=== PATIENT | female | born 1980 | race Caucasian/White ===

== ENCOUNTER → 2018-05-03 | Outpatient (CLI) | payer MEDICAID | LOC: FIMAGING 09:27 | PROVIDERS: ATTEND Advanced Practice Midwife | DX: O09.522 Supervision of elderly multigravida, second trimester (principal); O99.282 Endocrine, nutritional and metabolic diseases complicating pregnancy, second trimester; Z3A.21 21 weeks gestation of pregnancy ==

== ENCOUNTER 2018-09-09 02:45 | Inpatient (IN) | payer OTHER ==
--- NOTE | 2018-09-09 03:30 | PDGENHP ---
History and Physical History and Physical: Care: [facility] HPI: Mary Kate Newman is a with IUP@ 40-2 weeks that presents to L&D with complaints of SROM 09/08/18 @ 1800 EDC: 09/07/18 which is based on Ultrasound at 9 weeks. Her is complicated by: AMA, (38yo), h/o trisomy 21 with G1 (EAB @ 15wks), waldo's Review of Systems: Constitutional: Denies any fever, chills, or fatigue HEENT: denies any visual changes, difficulty swallowing, hearing loss Cardiovascular: Denies any chest pain, palpitations, leg swelling Respiratory: denies any cough, wheezing, or shortness of breathe GI: Denies any nausea, vomiting, diarrhea, constipation : denies any dysuria, urgency, frequency, vaginal bleeding Musculoskeletal: denies any muscle or bone pain Skin: denies any rashes Neuro: denies any headache, seizures, lightheadedness, dizziness, or loss of consciousness Psychiatric: denies any depression, anxiety, or SI/HI thoughts HISTORY: Previous OB history: 7#4, EAB @ 15wks 09/10 Tri21 Past medical history: waldo's Past surgical history: none Social: Denies any alcohol, tobacco, or drug use. Marty, works as RN @ [employer] Family history: Not relevant Medications: PNV, levothyroxine Allergies (list reaction): NKDA LABS: Rh: A+ ABS: Neg Rubella: Immune HbsAg: NR HIV: NR VDRL: NR 1hr: 90 GC: Neg Chlamydia: Neg Pap: Normal (2016) GBS: negative BMI: (prepreg) 25 PHYSICAL EXAM: Constitutional: WN, A&Ox3 HEENT: normocephalic atraumatic, supple Skin: Warm, dry, intact Heart: RRR, no murmur Chest: CTA-B Abdomen: Soft, nontender, gravid SVE: /-2 Extremities: no edema, negative homans sign Neuro: grossly normal Psych: normal affect assessment: FHT baseline 135 +accels, no decels, moderate variability Contractions: toco q 2-4 Assessment: * [id number] with IUP@ 40-2 * SROM 09/08/18 @ 1800 * GBS negative * early labor * cat 1 FHR Plan: * Admit to L&D * pain management PRN * expectant management * IA per protocol Today's visit was approximately 30 min, of which >50% of visit 20 min, was spent face to face with pt on direct counseling/coordination of care.
[2018-09-09] MEDS ORDERED: LIDOCAINE 1% 300 MG/30 ML SDV SC PRN (03:46)
[2018-09-09] MEDS ORDERED: OXYTOCIN/RINGERS LACTATE 1,000 ML IV PRN (03:46)
[2018-09-09] MEDS ORDERED: EPSOM SALT 454 GM TP PRN (03:46)
[2018-09-09] MEDS ORDERED: MISOPROSTOL 200 MCG TAB PR PRN (03:46)
[2018-09-09] MEDS ORDERED: OLIVE OIL 118 ML BTL MISC PRN (03:46)
[2018-09-09] MEDS ORDERED: IBUPROFEN 600 MG TAB PO PRN (03:46)
[2018-09-09] MEDS ORDERED: LR 1,000 ML IV PRN (03:46)
[2018-09-09] MEDS ORDERED: AMMONIA AROMATIC 1 EACH AMP IH ONE (03:54)
[2018-09-09] MEDS ORDERED: TERBUTALINE SULFATE 1 MG/ML VIAL ONE (03:54)
[2018-09-09] MEDS ORDERED: LIDOCAINE 1% 300 MG/30 ML SDV ONE (03:54)
[2018-09-09] MEDS ORDERED: OXYTOCIN 10 UNIT/ML VIAL ONE (03:54)
[2018-09-09] MEDS ORDERED: OLIVE OIL 118 ML BTL ONE (03:54)
[2018-09-09] MEDS ORDERED: MISOPROSTOL 200 MCG TAB ONE (03:54)
[2018-09-09 04:00] LABS: PLATELET COUNT 187 10^3/uL (150-400)
[2018-09-09] MEDS ORDERED: fentaNYL 100 MCG/2 ML INJ IV ONE (05:00)
--- NOTE | 2018-09-09 05:19 | OBPROG ---
Labor Progress Note Assessment/Plan: Assessment: [id number] with IUP@ 40-2 early labor PROM- 09/08/18 @ 1800 GBS Negative cat 1 FHR Plan: encouraged rest pain management PRN reassess 2-4hr/PRN offered augmentation- pt declines 09/09/18 05:16 Subjective/Intrapartum Course: 09/09/18 05:19 pt doing well, she is breathing through contractions. She is able to close eyes between. Jimmy @ BS, supportive. Objective: 09/09/18 03:50 Patient ABO/Rh A POSITIVE 09/09/18 03:50 - Contraction Pattern Assessment Current Contraction Pattern: Regular - FHR Assessment Montemayor FHR (bpm): 135 FHR Pattern Variability: Moderate FHR Category: 1 Oxytocin Orders Assessment - Pre-Induction/Augmentation Assessment Gestational Age: 40 week(s) and 2 day(s) ICD10 Worksheet Patient Problems: Problems Problem Status Onset Labor and delivery, indication for care Acute - ICD10 Problem Qualifiers (1) Labor and delivery, indication for care
[2018-09-09] MEDS ORDERED: ONDANSETRON 4 MG/2 ML VIAL IVP PRN (06:19)
[2018-09-09] MEDS ORDERED: PHENYLEPHRINE HCL 100 MCG/ML SYR IVP PRN (06:19)
[2018-09-09] MEDS ORDERED: NALOXONE HCL 0.4 MG/ML INJ IVP PRN (06:19)
--- NOTE | 2018-09-09 06:19 | PREANESOB ---
Obstetric Pre-Anesthesia Info - General Info Proposed Procedure: epidural : 3 Para: 1 JOHN: 09/07/18 Gestational Age: 40 week(s) and 2 day(s) - Info Status: Full Term FHR Pattern: Reassuring - Labor Status Pitocin: Planned Magnesium Sulfate in Use: No Indications for Labor Analgesia: Pain Control Labor Epidural: Proposed Anesthesia Allergies/Adverse Reactions: Allergy/AdvReac Type Severity Reaction Status Date / Time No Known Allergies Allergy Unverified 09/09/18 03:45 Visit Medications: Generic Name Dose Route Start Last Admin Trade Name Freq PRN Reason Stop Dose Admin Lactated Ringer's 1,000 mls @ 0 mls/hr 09/09/18 03:46 Lr IV 09/10/18 03:45 PRN PRN SEE PROTOCOL CONDITIONS Protocol Per Protocol Oxytocin/Lactated Ringer's 1,000 mls @ 125 mls/hr 09/09/18 03:46 Pitocin 20 Units/Lr (Premix) IV PRN PRN Post bleeding Ibuprofen 600 mg 09/09/18 03:46 Motrin PO ONCE PRN post , pain Lidocaine HCl 300 mg 09/09/18 03:46 Lidocaine Hcl 1% SC 03/08/19 03:45 ONCE PRN episiotomy Magnesium Sulfate 454 gm 09/09/18 03:46 Epsom Salt TP 03/08/19 03:45 Q1H PRN perineal discomfort Misoprostol 800 - 1,000 mcg 09/09/18 03:46 Cytotec KS ONCE PRN Vaginal Atony/Bleeding West Oil 118 ml 09/09/18 03:46 Sweet Oil MISC 03/08/19 03:45 ONCE PRN perineal massage Discontinued Medications Generic Name Dose Route Start Last Admin Trade Name Freq PRN Reason Stop Dose Admin Ammonia (Aromatic Spirit) Confirm 09/09/18 03:54 Ammonia Aromatic Administered 09/09/18 03:55 Dose 1 each IH .STK-MED ONE Fentanyl 50 mcg 09/09/18 05:00 09/09/18 04:55 Sublimaze IV 09/09/18 05:01 50 mcg ONCE ONE Administration Lidocaine HCl Confirm 09/09/18 03:54 Lidocaine Hcl 1% Administered 09/09/18 03:55 Dose 300 mg .ROUTE .STK-MED ONE Misoprostol Confirm 09/09/18 03:54 Cytotec Administered 09/09/18 03:55 Dose 1,000 mcg .ROUTE .STK-MED ONE West Oil Confirm 09/09/18 03:54 Sweet Oil Administered 09/09/18 03:55 Dose 118 ml .ROUTE .STK-MED ONE Oxytocin Confirm 09/09/18 03:54 Pitocin Administered 09/09/18 03:55 Dose 40 unit .ROUTE .STK-MED ONE Terbutaline Sulfate Confirm 09/09/18 03:54 Brethine Administered 09/09/18 03:55 Dose 1 mg .ROUTE .STK-MED ONE - Anesthesia History Response to Local Anesthetics: Normal Anesthesia & Operative History: No Prior Problems Family Anesthesia History: Negative - Social History Substance Use/Abuse: Denies - Vital Signs Height/Weight (Nursing): Height 162.56 cm Weight 83.915 kg - Focused Exam Neck exam: FROM Mallampati Score: Class 2 Mouth exam: normal dental/mouth exam Pulmonary: no respiratory distress, clear to auscultation Cardiovascular: regular rate and rhythym, no murmur, rub, or gallop Labs: 09/09/18 03:50 Patient ABO/Rh A POSITIVE 09/09/18 03:50 - Plan Consent Signed and on Chart: Yes Patient/Guardian Understands and Agrees to Plan: Yes
[2018-09-09] MEDS ORDERED: PHENYLEPHRINE HCL 100 MCG/ML SYR ONE (06:21)
[2018-09-09] MEDS ORDERED: fentaNYL 2MCG/ML/BUP 0.1% RTU 100 ML BAG EP ONE (06:21)
[2018-09-09] MEDS ORDERED: fentaNYL 2MCG/ML/BUP 0.1% RTU 100 ML EP SCH (06:30)
--- NOTE | 2018-09-09 08:32 | OBPROG ---
Labor Progress Note Assessment/Plan: Assessment: 38 y/o s/p SROM clear fluid Irregular mild/mod contractions - q 4-[address]-comfortable EFM Category 1 currently - had spontaneous prolonged decel to 80-90s X 3 minutes 30 minutes ago- did not correspond with contraction - resolved spontaneously after position change SVE per RN 3-4/70/-2 Plan: Discussed risks/benefits for labor augmentation at this point due to irregular contractions and slow progress. Patient agreeable to pitocin augmentation Will start pitocin now - as long as baby tolerates and EFM remains category 1 Limited vaginal exams Anticipated 09/09/18 12:57 Subjective/Intrapartum Course: 09/09/18 05:19 pt doing well, she is breathing through contractions. She is able to close eyes between. [employer] Work @ BS, supportive. 09/09/18 13:03 Comfortable with epidural. Sleeping at intervals. Objective: 09/09/18 03:50 Patient ABO/Rh A POSITIVE 09/09/18 03:50 - SVE Dilation (cm): 3 Effacement (%): 75 Station: -2 Membranes: SROM Amniotic Fluid Color: Clear - Contraction Pattern Assessment Current Contraction Pattern: Irregular Oxytocin Orders Assessment - Pre-Induction/Augmentation Assessment Gestational Age: 40 week(s) and 2 day(s) ICD10 Worksheet Patient Problems: Problems Problem Status Onset Labor and delivery, indication for care Acute
[2018-09-09] MEDS ORDERED: LR 500 ML IV PRN (08:53)
[2018-09-09] MEDS ORDERED: OXYTOCIN/RINGERS LACTATE 500 ML IV SCH (09:00)
--- NOTE | 2018-09-09 15:27 | OBDEL ---
Info Type: Vaginal Presentation at Delivery: Vertex L&D Analgesia/Anesthesia Type: Epidural GBS+: No Intrapartum Medications: Discontinued Medications Generic Name Dose Route Start Last Admin Trade Name Elton PRN Reason Stop Dose Admin Fentanyl 50 mcg 09/09/18 05:00 09/09/18 04:55 Sublimaze IV 09/09/18 05:01 50 mcg ONCE ONE Administration - Hospital Course Intrapartum: 09/09/18 05:19 pt doing well, she is breathing through contractions. She is able to close eyes between. 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 09/09/18 13:03 Comfortable with epidural. Sleeping at intervals. Indications for Delivery: SROM Vaginal Delivery - Delivery Provider Delivery Physician/CNM: Jeannette Chi - Labor and Delivery Onset of Contractions Date: 09/09/18 Onset of Contractions Time: 01:00 Onset of Contractions Type: Augmented Rupture of Membranes Date: 09/08/18 Rupture of Membranes Time: 18:00 Rupture of Membranes Type: Spontaneous Amniotic Fluid Color: Clear Dilation Complete Date: 09/09/18 Dilation Complete Time: 14:45 Placenta Delivery Date: 09/09/18 Placenta Delivery Time: 15:10 Total Hours of Labor: 14 Episiotomy: Midline Laceration: 2nd Degree Repair: 3-0, Vicryl Vaginal Sponge Count Correct: Yes Vaginal Needle Count Correct: Yes Vaginal Sweep Performed: Yes EBL: 200 Delivery Events: None - Medications Labor Augmentation/Induction Methods Used: Pitocin Labor Augmentation/Induction Indication: Inadequate Contraction Frequency, Inadequate Contraction Strength Data JOHN: 09/07/18 Gestational Age: 40 week(s) and 2 day(s) Montemayor Delivery Date: 09/09/18 Delivery Time: 14:54 Sex of Infant: Female Score (1 Min): 8 Score (5 Min): 8 ICD10 Worksheet Patient Problems: Problems Problem Status Onset Labor and delivery, indication for care Acute
[2018-09-09] MEDS ORDERED: SIMETHICONE 80 MG TAB CHEW PO PRN (15:28)
[2018-09-09] MEDS ORDERED: DOCUSATE SODIUM 100 MG CAP PO PRN (15:28)
[2018-09-09] MEDS ORDERED: ACETAMINOPHEN 325 MG TAB PO PRN (15:28)
[2018-09-09] MEDS ORDERED: HYDROCORTISONE 0.5% CREAM TP PRN (15:28)
[2018-09-09] MEDS ORDERED: HYDROCODONE/APAP 5/325 TAB PO PRN (15:28)
[2018-09-09] MEDS: IBUPROFEN 600 MG TAB PO PRN (21:43)
[2018-09-10] MEDS: IBUPROFEN 600 MG TAB PO PRN ×3 (03:48→15:48)
[2018-09-10 09:10] VITALS: BP 131/78
--- NOTE | 2018-09-10 11:29 | OBGCSDC ---
General Delivery Information - General Info : 3 Para: 2 Abortions: 1 Type: Vaginal L&D Analgesia/Anesthesia Type: Epidural Admission Date: 09/09/18 Labs: Patient ABO/Rh A POSITIVE 09/09/18 03:50 Hct 39.1 % (38.0-47.0) 09/09/18 03:50 - Hospital Course Intrapartum: 09/09/18 05:19 pt doing well, she is breathing through contractions. She is able to close eyes between. 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 09/09/18 13:03 Comfortable with epidural. Sleeping at intervals. : 09/10/18 11:27 S) Pt doing well, reports min pain and bleeding. she is ambulating and voiding without difficulty. She is . She desires discharge home today. O) VSS, afebrile constitutional: WNWF, A&Ox3 HEENT: normocephalic, atraumatic, supple Heart: RRR, No murmur Chest: CTA-B Abdomen: Soft, nontender Uterus: Firm at U-2 Lochia: Minimal rubra Perineum: Intact, healing well Extremities: Trace edema, and negative Jayme's sign Neuro: Grossly normal A) 38 year-old P2 S/P PPD#2 P) Discharge home today Continue Pelvic rest x6wks Discussed danger signs (infection, preeclampsia, depression, heavy bleeding, etc) RTO in 2/4/6 weeks Vaginal - Delivery Provider Delivery Physician/CNM: Jeannette Chi - Diagnosis Labor: Augmented Rupture of Membranes Type: Spontaneous Amniotic Fluid Color: Clear Episiotomy: Midline Laceration: 2nd Degree Repair: 3-0, Vicryl Delivery Events: None - Delivery EBL: 200 [place] Data JOHN: 09/07/18 Gestational Age: 40 week(s) and 3 day(s) Montemayor Delivery Date: 09/09/18 Delivery Time: 14:54 Sex of : Female [place] Weight (gm): 3512 g Score (1 Min): 8 Score (5 Min): 8 Discharge Information - Discharge Information Condition: Good
== END 2018-09-10 16:30 | disposition home or self-care (01) | DRG 807 ==
LOC: FLD 02:45 → OBSVTOIN 03:48 → FOB 19:40
PROVIDERS: ADMIT Advanced Practice Midwife; ATTEND Advanced Practice Midwife
DX: O70.1 Second degree perineal laceration during delivery (principal); Z37.0 Single live birth; Z3A.40 40 weeks gestation of pregnancy
CPT/HCPCS: J2370; J2590; J3010; J3105